=== PATIENT | female | born 1990 | race African-American/Black ===

== ENCOUNTER 2017-01-10 19:05 | Emergency (ER) | payer OTHER ==
[2017-01-10] MEDS ORDERED: DEXAMETHASONE 10 MG/ML VIAL PO STA (20:02)
[2017-01-10] MEDS ORDERED: DEXAMETHASONE 10 MG/ML VIAL ONE (20:08)
[2017-01-10] MEDS ORDERED: CHERRY SYRUP 10 ML UDC PO ONE (20:08)
== END 2017-01-10 20:21 | disposition home or self-care (01) ==
DX: J02.8 Acute pharyngitis due to other specified organisms (principal); B97.89 Other viral agents as the cause of diseases classified elsewhere; R03.0 Elevated blood-pressure reading, without diagnosis of hypertension; R76.11 Nonspecific reaction to tuberculin skin test without active tuberculosis
CPT/HCPCS: 87070; 87430; 99283; A9270